=== PATIENT | female | born 2000 | race Caucasian/White ===

== ENCOUNTER 2019-04-20 15:42 | Emergency (ER) | payer OTHER ==
[2019-04-20] MEDS ORDERED: OXYCODONE-ACETAMINOPHEN 5-325 MG TABLET PO ONE (17:09)
[2019-04-20] MEDS ORDERED: KETOROLAC TROMETHAMINE 60 MG/2 ML SDV IM ONE (17:09)
--- NOTE | 2019-04-20 17:13 | ER Document Report ---
ED Medical Screen (RME) - General Chief Complaint: Cyst Stated Complaint: CYST ON TAILBONE Time Seen by Provider: 04/20/19 17:09 Mode of Arrival: Ambulatory Information source: Patient Notes: 18-year-old female presents to ED for complaint of pilonidal cyst. She states she had a pilonidal cyst that became an abscess about 2 years ago got better. She states this was started on Wednesday she went to the primary care they gave her antibiotics and some pain medicine but the pain medicine is all gone. She states that the cyst is getting worse and it is extremely painful. She does have a very large pilonidal cyst that is very tender to palpation. I have greeted and performed a rapid initial assessment of this patient. A comprehensive ED assessment and evaluation of the patient, analysis of test results and completion of medical decision making process will be conducted by an additional ED providers. Dictation of this chart was performed using voice recognition software; therefore, there may be some unintended grammatical errors. TRAVEL OUTSIDE OF THE [place] IN LAST 30 DAYS: No - Related Data Allergies/Adverse Reactions: No Known Allergies Allergy (Unverified 04/20/19 16:08) Past Medical History - Social History Chew tobacco use (# tins/day): No Frequency of alcohol use: None Drug Abuse: None Renal/ Medical History: Denies: Hx Peritoneal Dialysis Physical Exam - Vital signs Vitals: Temp Pulse Resp BP Pulse Ox 97.9 F 101 H 20 134/69 H 98 04/20/19 16:10 04/20/19 16:10 04/20/19 16:10 04/20/19 16:10 04/20/19 16:10 Course - Vital Signs Vital signs: Temp Pulse Resp BP Pulse Ox 97.9 F 101 H 20 134/69 H 98 04/20/19 16:10 04/20/19 16:10 04/20/19 16:10 04/20/19 16:10 04/20/19 16:10
--- NOTE | 2019-04-20 19:22 | ER Document Report ---
ED General - General Chief Complaint: Cyst Stated Complaint: CYST ON TAILBONE Time Seen by Provider: 04/20/19 17:09 Mode of Arrival: Ambulatory TRAVEL OUTSIDE OF THE [place] IN LAST 30 DAYS: No - HPI Notes: 18-year-old female to the emergency department with complaints of infected pilonidal cyst that has progressively gotten worse since the weekend. She saw her primary care physician on Wednesday and she was prescribed Augmentin and Fouke. She states that since last night the cyst has doubled in size and is very painful. She states that she has not had a fever, chills, chest pain, shortness of breath, any drainage. States that she has had a pilonidal abscess before about 2 years ago and it resolved on its own. She is never seen a surgeon for pilonidal cyst. - Related Data Allergies/Adverse Reactions: No Known Allergies Allergy (Unverified 04/20/19 16:08) Past Medical History - General Information source: Patient - Social History Smoking Status: Never Smoker Chew tobacco use (# tins/day): No Frequency of alcohol use: None Drug Abuse: None Family History: Reviewed & Not Pertinent Patient has suicidal ideation: No Patient has homicidal ideation: No Renal/ Medical History: Denies: Hx Peritoneal Dialysis Review of Systems - Review of Systems Constitutional: denies: Chills, Fever EENT: No symptoms reported Cardiovascular: denies: Chest pain, Palpitations, Orthopnea, Syncope, Dizziness, Lightheaded Respiratory: denies: Cough, Short of breath Gastrointestinal: denies: Abdominal pain, Diarrhea, Nausea, Vomiting Skin: Other - Painful pilonidal abscess Hematologic/Lymphatic: No symptoms reported Neurological/Psychological: No symptoms reported -: Yes All other systems reviewed and negative Physical Exam - Vital signs Vitals: Temp Pulse Resp BP Pulse Ox 97.9 F 101 H 20 134/69 H 98 04/20/19 16:10 04/20/19 16:10 04/20/19 16:10 04/20/19 16:10 04/20/19 16:10 Interpretation: Normal - General General appearance: Appears well In distress: None - HEENT Head: Normocephalic Eyes: Normal Pupils: PERRL - Respiratory Respiratory status: No respiratory distress Chest status: Nontender Breath sounds: Normal Chest palpation: Normal - Cardiovascular Rhythm: Regular Heart sounds: Normal auscultation Murmur: No - Abdominal Inspection: Normal Distension: No distension Bowel sounds: Normal Tenderness: Nontender Organomegaly: No organomegaly - Neurological Neuro grossly intact: Yes Cognition: Normal Orientation: AAOx4 Bebe Coma Scale Eye Opening: Spontaneous [place] Coma Scale Verbal: Oriented [place] Coma Scale Motor: Obeys Commands Bebe Coma Scale Total: 15 Speech: Normal Motor strength normal: LUE, RUE, LLE, RLE Sensory: Normal - Psychological Associated symptoms: Normal affect, Normal mood - Skin Skin Temperature: Warm Skin Moisture: Dry Skin Color: Erythema Skin irregularity: Abscess - To the pilonidal region at the gluteal cleft there is a noted pointing large pilonidal abscess with no sinus tract or surrounding cellulitis. it is fluctuant and very tender to palpation Course - Re-evaluation Re-evalutation: 04/20/19 20:48 Impression: Pilonidal abscess. Patient tolerated I&D well. The wound was packed. We will place her on doxycycline. Will give more pain medicine. We will have her return in 2 days for wound check and packing change. We will also give information for follow-up for general surgeon. Patient agrees with the plan. Urged to return if she has any worsening symptoms such as fever, spreading redness, worsening pain, dizziness, syncope, chest pain, shortness of breath, or any other concerns. - Vital Signs Vital signs: Temp Pulse Resp BP Pulse Ox 97.9 F 101 H 20 134/69 H 98 04/20/19 16:10 04/20/19 16:10 04/20/19 16:10 04/20/19 16:10 04/20/19 16:10 Procedures - Incision and Drainage Buttock Time completed: 20:50 Type: Complex Anesthetic type: 1% Lidocaine w/epi mL's of anesthetic: 6 Blade size: 11 I&D procedure: Betadine prep applied, Iodoform packing placed - 1/2 inch iodoform packing placed Incision Method: Incision made by scalpel Amount/type of drainage: Copious amount of bloody purulent drainage Notes: 04/20/19 I&D to pilonidal abscess with successful drainage of large amount of purulent discharge. Patient tolerated fair. She was packed with half inch iodoform packing Discharge - Discharge Clinical Impression: Pilonidal abscess Condition: Stable Disposition: HOME, SELF-CARE Instructions: Abscess ([facility]) Additional Instructions: ABSCESS: You have an abscess (boil). This a pus-forming infection. Some boils may be left to drain on their own, but most require lancing. From the time the tender lump first appears, it may be three or four days before the abscess is ready to nestor. Local heat and rest help at this stage of treatment. An antibiotic may prevent spread of the infection. Once the abscess is opened, packing may be placed into it. This is done so pus is not sealed inside by premature closure of the cavity. The packing will be removed at your follow-up visit or you may be advised to remove it yourself at home. Sometimes this packing must be replaced a few times during healing. The wound will heal with surprisingly little scar. Depending on the size and location of an abscess, healing can take one to four weeks. You may shower and wash the area around the incision site two or three times a day. Antibiotics may be prescribed, but are usually not necessary after an abscess has been drained. If you develop fever, chills, worsening pain, or increasing swelling in the area, call the doctor or return immediately. POST INCISION AND DRAINAGE: You have had an incision made to allow drainage of an abscess. The incision must remain open so that pus and debris can drain from the wound. If the abscess cavity is large, packing is placed. This keeps the tissues from collapsing and trapping pus inside, while the body shrinks the cavity. The packing may need to be replaced every day or two. The physician will instruct you on the packing. Keep a bulky dressing over the area. Replace it if it becomes saturated with blood or pus. Do not disturb the packing (if present). You may shower and cleanse the area with gentle soap and warm water two or three times a day. Local warmth may be soothing, and may promote faster healing. Return if you develop high fever or chills, or if you note spreading redness, increasing swelling, or increasing tenderness. ORAL NARCOTIC MEDICATION: You have been given a prescription for pain control. This medication is a narcotic. It's best taken with food, as nausea can result if taken on an empty stomach. Don't operate machinery or drive within six hours of taking this medication. Do not combine this medicine with alcohol, or with any medication which can cause sedation (such as cold tablets or sleeping pills) unless you get permission from the physician. Narcotics tend to cause constipation. If possible, drink plenty of fluids and eat a diet high in fiber and fruits. DOXYCYCLINE: Doxycycline (Vibramycin, Doryx) is an antibiotic of the tetracycline family. This type of drug is useful for infections of the respiratory tract and genital tract, and is sometimes used for intestinal infections. Unlike most tetracyclines, doxycycline can be taken with food. It is longer acting, and (usually) less prone to side effects than regular tetracycline. Tetracycline antibiotics can stain immature teeth and SHOULD NOT BE TAKEN BY CHILDREN, NURSING MOTHERS, OR WOMEN. Tetracyclines can make you more prone to sunburn. Abdominal cramping, nausea, and diarrhea are occasional side effects. Women may experience vaginal yeast infections. Call the doctor at once if you develop hives, itching, shortness of breath, or lightheadedness. FOLLOW-UP CARE: FOLLOW UP IN TWO DAYS FOR PACKING REMOVAL. START DOXYCYCLINE. EXPECT FURTHER DRAINAGE. FOLLOW UP WITH GENERAL SURGERY FOR DEFINITIVE TREATMENT FOR PILONIDAL CYST. RETURN SOONER IF ANY FEVERS< WORSENING PAIN, SPREADING REDNESS, PASSING OUT, OR ANY OTHER CONCERNS. Prescriptions: Doxycycline Hyclate 100 mg PO BID #20 capsule Hydrocodone/Acetaminophen [Fouke 5-325 mg Tablet] 1 tab PO Q4H #12 tablet Ibuprofen [Motrin 800 mg Tablet] 800 mg PO Q8H PRN #30 tab PRN Reason: Referrals: ROMAIN BARRERA MD [ACTIVE STAFF] - Follow up in 1 week (for surgical follow up)
[2019-04-20] MEDS ORDERED: LIDOCAINE 1%/EPINEPHRINE INJ 20 ML VIAL INJ ONE (19:27)
[2019-04-20 20:41] VITALS: BP 100/65
== END 2019-04-20 20:48 | disposition home or self-care (01) ==
LOC: ER 15:42
DX: L05.01 Pilonidal cyst with abscess (principal)
CPT/HCPCS: 99282; 96374; 10080; J1885; J3490